=== PATIENT | male | born 1985 | race Caucasian/White ===

== ENCOUNTER 2023-09-09 06:59 | Observation (INO) | payer SELFPAY ==
[2023-09-09 07:30] LABS: BASOPHILS ABSOLUTE AUTO 0.1 K/mm3 (0.0-0.2); BASOPHILS PERCENT AUTO 0.5 % (0.0-1.0); EOSINOPHILS ABSOLUTE AUTO 0.1 K/mm3 (0.0-0.4); EOSINOPHILS PERCENT AUTO 0.9 % (0.0-6.0); HEMATOCRIT 43.7 % (42.0-52.0); HEMOGLOBIN 15.6 gm/dl (14.0-18.0); IMMATURE GRAN ABSOLUTE AUTO 0.09 K/mm3 (0.00-0.05); IMMATURE GRAN PERCENT AUTO 0.7 % (0.0-0.4); LYMPHOCYTES ABSOLUTE AUTO 2.1 K/mm3 (1.0-4.8); LYMPHOCYTES PERCENT AUTO 16.9 % (24.0-44.0); MEAN CORPUSCULAR HEMOGLOBIN 28.7 pg (28.0-32.0); MEAN CORPUSCULAR HGB CONC 35.7 g/dl (32.0-36.0); MEAN CORPUSCULAR VOLUME 80.5 fl (83.0-99.0); MEAN PLATELET VOLUME 10.6 fl (9.4-12.4); MONOCYTES ABSOLUTE AUTO 0.7 K/mm3 (0.0-0.8); MONOCYTES PERCENT AUTO 5.9 % (0.0-8.0); NEUTROPHILS ABSOLUTE AUTO 9.4 K/mm3 (1.8-7.7); NEUTROPHILS PERCENT AUTO 75.1 % (41.0-71.0); PLATELET COUNT,PLT 198 K/mm3 (150-400); RED BLOOD CELL COUNT 5.43 M/mm3 (4.52-5.90); WHITE BLOOD CELL COUNT,WBC 12.45 K/mm3 (3.9-11.3)
[2023-09-09 08:08] LABS: APPEARANCE,URINE CLEAR (Clear); BILIRUBIN,URINE NEGATIVE (Negative); COLOR,URINE YELLOW (Yellow); GLUCOSE,URINE 2+ (Negative); KETONES,URINE 4+ (Negative); LEUKOCYTE ESTERASE,URINE NEGATIVE (Negative); NITRITE,URINE NEGATIVE (Negative); OCCULT BLOOD,URINE TRACE-LYSED (Negative); PH,URINE 5.5 (5.0-8.0); PROTEIN,URINE 1+ (Negative); UROBILINOGEN,URINE 0.2 (0.2-1.0)
[2023-09-09 08:09] LABS: A/G RATIO 1.1 (1-2); CALCIUM 9.2 mg/dL (8.5-10.1); ESTIMATED GFR 100 mL/min (>60)
[2023-09-09] MEDS: Iopamidol 612 MG/ML 100 ML Bottle IVPUSH ONE (08:15)
[2023-09-09 08:23] LABS: BARBITURATE SCREEN,URINE NEGATIVE (CUTOFF=200); BENZODIAZEPINES SCREEN,URINE NEGATIVE (CUTOFF=150); BUPRENORPHINE SCREEN,URINE NEGATIVE (CUTOFF=10); METHADONE SCREEN, URINE NEGATIVE (CUT0FF=200); METHAMPHETAMINES SCREEN, URINE NEGATIVE (CUTOFF=500); OXYCODONE SCREEN,URINE NEGATIVE (CUT0FF=100); THC SCREEN,URINE 20 NG/ML NEGATIVE (CUTOFF=50)
[2023-09-09 08:29] LABS: AMPHETAMINES SCREEN, URINE NEGATIVE (CUTOFF=500)
[2023-09-09] MEDS: Sodium Chloride 0.9% 1,000 ML IV ONE ×3 (08:29→17:39)
[2023-09-09] MEDS: ceFAZolin 2 GM in Sodium Chloride 0.9% 50 ML IV ONE ×2 (08:31→17:40)
[2023-09-09 08:41] LABS: BACTERIA,URINE NOT SEEN /hpf (FEW); EPITHELIAL CELLS,URINE 0-5 /hpf (0-5); MUCUS,URINE NOT SEEN /hpf (FEW); RBC,URINE 0-5 /hpf (0-5); WBC,URINE 0-5 /hpf (0-5)
[2023-09-09 08:42] LABS: INR 0.94
[2023-09-09 08:49] LABS: ALANINE AMINOTRANSFERASE,ALT 88 U/L (16-63); ALBUMIN 4.3 g/dl (3.4-5.0); ALKALINE PHOSPHATASE 138 U/L (46-116); ANION GAP 20.8 (5-15); BILIRUBIN TOTAL 0.8 mg/dL (0.2-1.0); BLOOD UREA NITROGEN,BUN 14 mg/dL (7-18); CARBON DIOXIDE,CO2 22 mEq/L (21-32); CHLORIDE,CL 93 mEq/L (98-107); PROTEIN TOTAL,TP 8.2 g/dl (6.4-8.2); SODIUM,NA 131 mEq/L (136-145)
[2023-09-09 08:54] LABS: GLUCOSE RANDOM 420 mg/dL (70-99); TROPONIN I HIGH SENSITIVITY < 4 pg/mL (<=76)
[2023-09-09 08:55] LABS: ASPARTATE AMNIOTRANSFERASE,AST 31 U/L (15-37); POTASSIUM,K 4.8 mEq/L (3.5-5.1)
[2023-09-09] MEDS: Ondansetron 4 MG/2 ML SDV IVPUSH ONE (09:08)
[2023-09-09] MEDS: Morphine 4 MG/ML Syringe IVPUSH ONE (09:09)
[2023-09-09 09:31] LABS: BASE EXCESS ARTERIAL -4.2 (-2-2.0); BICARBONATE,ARTERIAL 19.9 meq/L (22.0-26.0); PCO2 ARTERIAL 35.1 mmHg (35.0-45.0)
[2023-09-09] MEDS ORDERED: Lactated Ringers 1,000 ML IV ONE ×2 (09:53)
[2023-09-09] MEDS: fentaNYL 100 MCG/2 ML SDV IVPUSH ONE (09:55)
[2023-09-09] MEDS: Morphine 2 MG/ML SYRINGE IVPUSH PRN (12:06)
[2023-09-09] MEDS: Insulin Lispro 100 Unit/ML 3 ML KwikPen SUBCUT SCH (13:20)
[2023-09-09] MEDS: oxyCODONE 5 MG Tab PO PRN (16:11)
[2023-09-09] MEDS ORDERED: Labetalol 100 MG/20 ML MDV IVPUSH PRN (16:47)
[2023-09-09] MEDS ORDERED: hydrALAZINE 20 MG/ML SDV IVPUSH PRN (16:48)
[2023-09-09] MEDS ORDERED: Ondansetron 4 MG/2 ML SDV IV PRN (16:52)
[2023-09-09] MEDS ORDERED: Melatonin 3 MG Tab PO PRN (16:52)
[2023-09-09] MEDS ORDERED: Lactated Ringers 1,000 ML IV SCH ×2 (17:00→18:00)
[2023-09-09] MEDS ORDERED: Propofol 200 MG/20 ML SDV ONE (17:42)
[2023-09-09] MEDS ORDERED: Midazolam 1 MG/ML 2 ML SDV ONE (17:42)
[2023-09-09] MEDS ORDERED: Ketamine 200 MG/20 ML MDV ONE (17:42)
[2023-09-09] MEDS ORDERED: fentaNYL 100 MCG/2 ML SDV ONE ×2 (17:42→18:00)
[2023-09-09] MEDS ORDERED: ceFAZolin 2 GM Vial ONE (17:43)
[2023-09-09] MEDS ORDERED: Ketorolac 30 MG/ML SDV ONE (17:43)
[2023-09-09] MEDS ORDERED: Sugammadex Sodium 200 MG/2 ML VIAL IV ONE ×2 (17:43)
[2023-09-09] MEDS ORDERED: Dexamethasone 4 MG/ML 5 ML MDV ONE (17:43)
[2023-09-09] MEDS ORDERED: dexmedeTOMIDine HCl 200 MCG/2 ML SDV ONE ×2 (17:43→19:45)
[2023-09-09] MEDS ORDERED: Sodium Chloride 0.9% 100 ML ONE (17:43)
[2023-09-09] MEDS ORDERED: Rocuronium 50 MG/5 ML Vial ONE (17:43)
[2023-09-09] MEDS ORDERED: fentaNYL 100 MCG/2 ML SDV IVPUSH PRN (18:00)
[2023-09-09] MEDS ORDERED: HYDROmorphone 0.5 MG/0.5 ML Syringe IVPUSH PRN (18:00)
[2023-09-09] MEDS ORDERED: Ondansetron 4 MG/2 ML SDV IVPUSH PRN (18:00)
[2023-09-09] MEDS ORDERED: Sodium Chloride 0.9% 10 ML Syringe FLUSH PRN (18:00)
[2023-09-09] MEDS: Insulin Lispro 100 Unit/ML 3 ML KwikPen SUBCUT ONE ×2 (18:19→21:58)
[2023-09-09] MEDS: EPINEPHrine 1 MG/ML SDV ONE (18:52)
[2023-09-09] MEDS: Bupivacaine 0.5% 30 ML SDV ONE (18:52)
[2023-09-09] MEDS: Lidocaine 1% 30 ML SDV ONE (18:52)
[2023-09-09] MEDS ORDERED: Esmolol 100 MG/10 ML SDV ONE (19:42)
[2023-09-09] MEDS ORDERED: Phenylephrine 1% 10 MG/ML SDV ONE (19:42)
[2023-09-09] MEDS ORDERED: Ropivacaine 0.5% 5 MG/ML 30 ML SDV ONE (19:42)
[2023-09-09] MEDS ORDERED: Bacitracin Oint 15 GM Tube ONE (19:53)
[2023-09-09] MEDS: Bacitracin Oint 15 GM Tube ONE (19:59)
[2023-09-09 21:34] LABS: CALCIUM 8.3 mg/dL (8.5-10.1); CREATININE 1.1 mg/dL (0.7-1.3); EST CRCL DRUG DOSING (CG) 89.82 mL/min
[2023-09-09] MEDS: Sodium Chloride 0.9% 10 ML Syringe FLUSH SCH (22:00)
[2023-09-09] MEDS: Sodium Chloride 0.9% 500 ML IV ONE (22:10)
[2023-09-10] MEDS: Insulin Lispro 100 Unit/ML 3 ML KwikPen SUBCUT ONE ×4 (00:10→23:54)
[2023-09-10 04:55] LABS: HEMATOCRIT 39.3 % (42.0-52.0); HEMOGLOBIN 13.6 gm/dl (14.0-18.0); MEAN CORPUSCULAR HEMOGLOBIN 28.9 pg (28.0-32.0); MEAN CORPUSCULAR HGB CONC 34.6 g/dl (32.0-36.0); MEAN CORPUSCULAR VOLUME 83.6 fl (83.0-99.0); MEAN PLATELET VOLUME 11.2 fl (9.4-12.4); PLATELET COUNT,PLT 184 K/mm3 (150-400)
[2023-09-10 05:34] LABS: A/G RATIO 0.9 (1-2); ALBUMIN 3.3 g/dl (3.4-5.0); ANION GAP 17.1 (5-15); BILIRUBIN TOTAL 0.7 mg/dL (0.2-1.0); BUN/CREATININE RATIO 16.3 (14-18); CALCIUM 8.8 mg/dL (8.5-10.1); CREATININE 0.8 mg/dL (0.7-1.3); EST CRCL DRUG DOSING (CG) 123.5 mL/min; MAGNESIUM 2.2 mg/dL (1.8-2.4); PHOSPHORUS 3.1 mg/dL (2.6-4.7); POTASSIUM,K 4.1 mEq/L (3.5-5.1); PROTEIN TOTAL,TP 6.8 g/dl (6.4-8.2)
[2023-09-10 06:45] LABS: HEMOGLOBIN A1C 11.6 %
[2023-09-10] MEDS: Insulin Glargine,Human Rec. Analog 100 Units/ML 3 ML Pen SUBCUT SCH (08:36)
[2023-09-10] MEDS: Enoxaparin 40 MG/0.4 ML Syringe SUBCUT SCH (08:37)
[2023-09-10] MEDS: Acetaminophen 325 MG Tab PO PRN (23:48)
[2023-09-11] MEDS: Sennosides/Docusate Sodium 50-8.6 MG Tab PO PRN (00:03)
[2023-09-11 05:29] LABS: ANION GAP 16.4 (5-15); BUN/CREATININE RATIO 16.3 (14-18); CALCIUM 8.6 mg/dL (8.5-10.1); CREATININE 0.8 mg/dL (0.7-1.3); EST CRCL DRUG DOSING (CG) 123.5 mL/min; POTASSIUM,K 3.4 mEq/L (3.5-5.1)
[2023-09-11 05:40] LABS: HEMATOCRIT 38.1 % (42.0-52.0); HEMOGLOBIN 12.9 gm/dl (14.0-18.0); MEAN CORPUSCULAR HEMOGLOBIN 29.1 pg (28.0-32.0); MEAN CORPUSCULAR HGB CONC 33.9 g/dl (32.0-36.0); MEAN PLATELET VOLUME 11.3 fl (9.4-12.4); PLATELET COUNT,PLT 172 K/mm3 (150-400); RED BLOOD CELL COUNT 4.43 M/mm3 (4.52-5.90)
[2023-09-11] MEDS: Insulin Lispro 100 Unit/ML 3 ML KwikPen SUBCUT SCH (07:22)
[2023-09-11] MEDS: Insulin Glargine,Human Rec. Analog 100 Units/ML 3 ML Pen SUBCUT SCH (08:37)
[2023-09-11] MEDS: Potassium Chloride 20 MEQ Tab.ER PO ONE (12:52)
== END 2023-09-11 13:17 | disposition home or self-care (01) ==
LOC: JD.ED 06:59 → JD.MS 09:52
PROVIDERS: ADMIT Student in an Organized Health Care Education/Training Program; ATTEND Student in an Organized Health Care Education/Training Program
DX: E11.65 Type 2 diabetes mellitus with hyperglycemia (principal); E11.00 Type 2 diabetes mellitus with hyperosmolarity without nonketotic hyperglycemic-hyperosmolar coma (NKHHC); S51.812A Laceration without foreign body of left forearm, initial encounter; F17.290 Nicotine dependence, other tobacco product, uncomplicated; Z79.4 Long term (current) use of insulin; Z79.899 Other long term (current) drug therapy; V89.2XXA Person injured in unspecified motor-vehicle accident, traffic, initial encounter
CPT/HCPCS: 36415; 36600; 70450; 71045; 71260; 72125; 72170; 73020; 73090; 73552; 74177; 80048; 80053; 80306; 80307; 81001; 82803; 82947; 83036; 83735; 84100; 84484; 85025; 85027; 85610; 93005; 94760; 94761; 97110; 97161; A9270; J0171; J0665; J0690; J1100; J1650; J1815; J1885; J2250; J2270; J2371; J2405; J2704; J2795; J3010; J3490; J7030; J7120; Q9967; 93010; 99284